=== PATIENT | female | born 1935 | race Caucasian/White ===

== ENCOUNTER 2017-03-17 08:31 | Inpatient (IN) | payer MEDICARE, OTHER ==
[~2017-03-17] VITALS: Ht 162.6 cm; Wt 47.2 kg
[~2017-03-17 08:31] MED LIST: ALEN70TA5 PO; DONE10TA61 PO; ENAL2.5T PO; LEVO112T4 PO; MEMA10TA PO; SIMV20TA3 PO
[2017-03-17] MEDS ORDERED: ACET325T9 PO (09:53)
[2017-03-17] MEDS ORDERED: LISI-338 PO (09:53)
[2017-03-17] MEDS ORDERED: CYAN10002 IJ (09:53)
[2017-03-17] MEDS ORDERED: PNV1TABL25 PO (09:53)
[2017-03-17] MEDS ORDERED: LEVO100T5 PO (09:53)
[2017-03-17 16:02] VITALS: BP 136/77
[2017-03-17 19:11] VITALS: BP 154/75
[2017-03-17] MEDS: DONEPEZIL HCL 10 MG TABLET PO SCH (20:03)
[2017-03-17] MEDS: SIMVASTATIN 20 MG TABLET PO SCH (20:04)
[2017-03-17] MEDS: MEMANTINE 10 MG TABLET. PO SCH (20:04)
[2017-03-17] MEDS: ACETAMINOPHEN 325 MG TABLET PO PRN (20:04)
[2017-03-18 05:39] VITALS: BP 155/75
[2017-03-18] MEDS: LEVOTHYROXINE 100 MCG TABLET PO SCH (06:28)
[2017-03-18] MEDS ORDERED: ALENDRONATE SODIUM 70 MG TABLET PO SCH (07:00)
[2017-03-18 08:00] VITALS: BP 138/81
[2017-03-18] MEDS: MEMANTINE 10 MG TABLET. PO SCH ×2 (09:49→19:40)
[2017-03-18] MEDS: PRENATAL MULTIVITAMIN TABLET. PO SCH (09:49)
[2017-03-18] MEDS: LISINOPRIL 5 MG TABLET. PO SCH (11:00)
[2017-03-18] MEDS: CYANOCOBALAMIN (VITAMIN B-12) 1,000 MCG/ML VIAL IM SCH (12:55)
[2017-03-18] MEDS: SIMVASTATIN 20 MG TABLET PO SCH (19:40)
[2017-03-18] MEDS: DONEPEZIL HCL 10 MG TABLET PO SCH (19:40)
[2017-03-19] MEDS: LEVOTHYROXINE 100 MCG TABLET PO SCH (04:51)
[2017-03-19 08:00] VITALS: BP 143/80
[2017-03-19] MEDS: PRENATAL MULTIVITAMIN TABLET. PO SCH (08:34)
[2017-03-19] MEDS: MEMANTINE 10 MG TABLET. PO SCH ×2 (08:34→19:57)
[2017-03-19] MEDS: CYANOCOBALAMIN (VITAMIN B-12) 1,000 MCG/ML VIAL IM SCH (08:34)
[2017-03-19] MEDS: LISINOPRIL 5 MG TABLET. PO SCH (08:35)
[2017-03-19 18:38] VITALS: BP 151/69
[2017-03-19] MEDS: SIMVASTATIN 20 MG TABLET PO SCH (19:57)
[2017-03-19] MEDS: ACETAMINOPHEN 325 MG TABLET PO PRN (19:57)
[2017-03-19] MEDS: DONEPEZIL HCL 10 MG TABLET PO SCH (19:57)
[2017-03-20] MEDS: LEVOTHYROXINE 100 MCG TABLET PO SCH (04:48)
[2017-03-20 05:02] VITALS: BP 147/79
[2017-03-20] MEDS: LISINOPRIL 5 MG TABLET. PO SCH (08:01)
[2017-03-20] MEDS: CYANOCOBALAMIN (VITAMIN B-12) 1,000 MCG/ML VIAL IM SCH (08:01)
[2017-03-20] MEDS: PRENATAL MULTIVITAMIN TABLET. PO SCH (08:01)
[2017-03-20] MEDS: MEMANTINE 10 MG TABLET. PO SCH ×2 (08:02→20:09)
[2017-03-20 18:29] VITALS: BP 99/62
[2017-03-20 19:42] LABS: BILIRUBIN,URINE NEG (NEG); CLARITY,URINE HAZY; COLOR,URINE YELLOW; GLUCOSE,URINE NEG (NEG)
[2017-03-20 19:43] LABS: BACTERIA,URINE MANY /HPF (0-FEW); NITRITE,URINE NEG (NEG); RBC,URINE 0 /HPF (0-2); SQUAMOUS EPITHELIAL CELL,UR MANY /LPF; UROBILINOGEN,URINE 0.2 mg/dL (0.2 mg/dL)
[2017-03-20] MEDS: DONEPEZIL HCL 10 MG TABLET PO SCH (20:08)
[2017-03-20] MEDS: SIMVASTATIN 20 MG TABLET PO SCH (20:09)
[2017-03-21] MEDS: LEVOTHYROXINE 100 MCG TABLET PO SCH (06:13)
[2017-03-21] MEDS: CYANOCOBALAMIN (VITAMIN B-12) 1,000 MCG/ML VIAL IM SCH (08:44)
[2017-03-21] MEDS: LISINOPRIL 5 MG TABLET. PO SCH ×2 (08:44→08:46)
[2017-03-21] MEDS: MEMANTINE 10 MG TABLET. PO SCH ×2 (08:44→19:51)
[2017-03-21] MEDS: PRENATAL MULTIVITAMIN TABLET. PO SCH (08:46)
[2017-03-21 09:14] VITALS: BP 120/65
[2017-03-21 19:24] VITALS: BP 110/63
[2017-03-21] MEDS: SIMVASTATIN 20 MG TABLET PO SCH (19:51)
[2017-03-21] MEDS: DONEPEZIL HCL 10 MG TABLET PO SCH (19:51)
[2017-03-22 05:42] VITALS: BP 116/71
[2017-03-22] MEDS: LEVOTHYROXINE 100 MCG TABLET PO SCH (05:59)
[2017-03-22] MEDS: PRENATAL MULTIVITAMIN TABLET. PO SCH (08:09)
[2017-03-22] MEDS: MEMANTINE 10 MG TABLET. PO SCH ×2 (08:11→19:41)
[2017-03-22] MEDS: LISINOPRIL 5 MG TABLET. PO SCH (08:11)
[2017-03-22] MEDS: DONEPEZIL HCL 10 MG TABLET PO SCH (19:41)
[2017-03-22] MEDS: SIMVASTATIN 20 MG TABLET PO SCH (19:41)
[2017-03-22 19:43] VITALS: BP 131/76
[2017-03-23 05:48] VITALS: BP 156/53
[2017-03-23] MEDS: LEVOTHYROXINE 100 MCG TABLET PO SCH (06:25)
[2017-03-23] MEDS: LISINOPRIL 5 MG TABLET. PO SCH (08:07)
[2017-03-23] MEDS: PRENATAL MULTIVITAMIN TABLET. PO SCH (08:07)
[2017-03-23] MEDS: MEMANTINE 10 MG TABLET. PO SCH ×2 (08:07→19:46)
[2017-03-23 19:27] VITALS: BP 110/69
[2017-03-23] MEDS: ACETAMINOPHEN 325 MG TABLET PO PRN (19:46)
[2017-03-23] MEDS: SIMVASTATIN 20 MG TABLET PO SCH (19:46)
[2017-03-23] MEDS: DONEPEZIL HCL 10 MG TABLET PO SCH (19:46)
[2017-03-23 20:20] LABS: BILIRUBIN,URINE NEG (NEG); CLARITY,URINE HAZY; COLOR,URINE YELLOW; GLUCOSE,URINE NEG (NEG); NITRITE,URINE POS (NEG); UROBILINOGEN,URINE 0.2 mg/dL (0.2 mg/dL)
[2017-03-23 20:21] LABS: BACTERIA,URINE MOD /HPF (0-FEW); SQUAMOUS EPITHELIAL CELL,UR MOD /LPF
[2017-03-24] MEDS: LEVOTHYROXINE 100 MCG TABLET PO SCH (05:10)
[2017-03-24 05:14] VITALS: BP 137/62
[2017-03-24] MEDS: PRENATAL MULTIVITAMIN TABLET. PO SCH (08:16)
[2017-03-24] MEDS: MEMANTINE 10 MG TABLET. PO SCH ×2 (08:17→19:58)
[2017-03-24] MEDS: LISINOPRIL 5 MG TABLET. PO SCH (08:17)
[2017-03-24 18:55] VITALS: BP 121/63
[2017-03-24] MEDS: DONEPEZIL HCL 10 MG TABLET PO SCH (19:58)
[2017-03-24] MEDS: SIMVASTATIN 20 MG TABLET PO SCH (19:58)
[2017-03-25] MEDS: LEVOTHYROXINE 100 MCG TABLET PO SCH (06:08)
[2017-03-25 06:16] VITALS: BP 156/80
[2017-03-25] MEDS: PRENATAL MULTIVITAMIN TABLET. PO SCH (08:52)
[2017-03-25] MEDS: MEMANTINE 10 MG TABLET. PO SCH ×2 (08:52→19:18)
[2017-03-25] MEDS: LISINOPRIL 5 MG TABLET. PO SCH (08:53)
[2017-03-25 19:09] VITALS: BP 124/75
[2017-03-25] MEDS: SIMVASTATIN 20 MG TABLET PO SCH (19:18)
[2017-03-25] MEDS: DONEPEZIL HCL 10 MG TABLET PO SCH (19:18)
[2017-03-26] MEDS: LEVOTHYROXINE 100 MCG TABLET PO SCH (06:35)
[2017-03-26 06:39] VITALS: BP 136/74
[2017-03-26] MEDS: PRENATAL MULTIVITAMIN TABLET. PO SCH (08:16)
[2017-03-26] MEDS: MEMANTINE 10 MG TABLET. PO SCH ×2 (08:16→19:25)
[2017-03-26] MEDS: LISINOPRIL 5 MG TABLET. PO SCH (08:17)
[2017-03-26 18:08] VITALS: BP 113/54
[2017-03-26] MEDS: AMOXICILLIN 500 MG CAPSULE PO SCH (19:25)
[2017-03-26] MEDS: DONEPEZIL HCL 10 MG TABLET PO SCH (19:25)
[2017-03-26] MEDS: ACETAMINOPHEN 325 MG TABLET PO PRN (19:25)
[2017-03-26] MEDS: SIMVASTATIN 20 MG TABLET PO SCH (19:25)
[2017-03-27] MEDS: LEVOTHYROXINE 100 MCG TABLET PO SCH (05:31)
[2017-03-27 05:32] VITALS: BP 120/67
[2017-03-27 08:11] VITALS: BP 120/67
[2017-03-27] MEDS: AMOXICILLIN 500 MG CAPSULE PO SCH ×2 (08:11→13:03)
[2017-03-27] MEDS: MEMANTINE 10 MG TABLET. PO SCH (08:11)
[2017-03-27] MEDS: LISINOPRIL 5 MG TABLET. PO SCH (08:11)
[2017-03-27] MEDS: PRENATAL MULTIVITAMIN TABLET. PO SCH (08:11)
[2017-03-31] MEDS ORDERED: ALENDRONATE SODIUM 35 MG TABLET PO SCH (07:00)
[2017-04-16] MEDS ORDERED: CYANOCOBALAMIN (VITAMIN B-12) 1,000 MCG/ML VIAL IM SCH (09:00)
--- NOTE | 2017-05-04 18:51 | DS ---
DATE OF DISCHARGE: 03/27/2017 HISTORY OF PRESENT ILLNESS: The patient is a 81-year-old female patient who was originally admitted to [address] [place] [address] on 03/15/2017. She apparently has developmental disability as well as dementia and resides in her own apartment and she got up in the middle of the night, and it was dark and she fell and remained on the floor for almost throughout the night. The patient did not take recall the circumstances of her fall and apparently was brought to the Emergency Room, was found to have rhabdomyolysis and hyperchloremic hypernatremia secondary to volume depletion, hypokalemia. She has also some right hip redness and coccyx wound. She was basically rehydrated. She was seen by the wound care team as well as physical and occupational therapist. Eventually, she was discharged to swing bed for further rehabilitation and did very well. Her mobility has improved and she is back to her baseline, and a decision was made to discharge her home on 03/27/2017. PHYSICAL EXAMINATION: GENERAL: On the day of discharge, the patient looked well and was clearly in no apparent respiratory distress. She was slightly pale, but no jaundice, cyanosis, or thyromegaly. No jugular venous distention. No limb edema. VITAL SIGNS: Her heart rate was 61, blood pressure 120/67, temperature was 97.4, respiratory rate was 20, and oxygen saturation was 95% on room air. HEAD, EYES, EARS, NOSE, AND THROAT: Showed normocephalic, atraumatic. NECK: Supple. HEART: Showed normal first and second heart sounds with no gallop, rub or murmur. CHEST: Clear to auscultation. No crepitation or rhonchi. ABDOMEN: Distended, soft, nontender. No guarding or rigidity. No organomegaly. Hernial orifices intact. Bowel sounds normal. NEUROLOGIC: She was demented without any obvious lateralizing sign. DISCHARGE MEDICATIONS: She was discharged home to continue on following medications: 1. Acetaminophen 650 mg every 4 hours. 2. Alendronate 70 mg once a week. 3. Cyanocobalamin 1000 mcg/mL intramuscular every 4 weeks. 4. Aricept 10 mg at bedtime. 5. Levothyroxine sodium 100 mcg once a day. 6. Lisinopril 5 mg once a day. 7. Namenda 10 mg twice a day. 8. multivitamin 1 tablet once a day. FINAL DISCHARGE DIAGNOSES: 1. Status post fall with mild rhabdomyolysis, resolved. 2. Hypernatremia, resolved. 3. Hyperkalemia, resolved. 4. Alzheimer's disease for which she continues on Aricept and Namenda. 5. Echogenic hyperthyroidism, resolved her Synthroid was cut down. 6. Right hip redness and coccygeal wound. 7. Iron deficiency anemia. 8. Severe vitamin B12 deficiency. FRANCISCO FOWLER MD DR: PATRICE/josefina JOB#: [id number] / [id number]
== END 2017-03-27 15:20 | DRG 558 ==
LOC: LND 10:42
PROVIDERS: ADMIT Family Medicine; ATTEND Family Medicine
DX: M62.82 Rhabdomyolysis (principal); E87.0 Hyperosmolality and hypernatremia; E87.5 Hyperkalemia; E87.8 Other disorders of electrolyte and fluid balance, not elsewhere classified; Z68.1 Body mass index [BMI] 19.9 or less, adult; D50.9 Iron deficiency anemia, unspecified; E53.8 Deficiency of other specified B group vitamins; E87.6 Hypokalemia; F02.80 Dementia in other diseases classified elsewhere, unspecified severity, without behavioral disturbance, psychotic disturbance, mood disturbance, and anxiety; G30.9 Alzheimer's disease, unspecified; E86.9 Volume depletion, unspecified; E05.90 Thyrotoxicosis, unspecified without thyrotoxic crisis or storm; S71.001A Unspecified open wound, right hip, initial encounter; E78.5 Hyperlipidemia, unspecified; I10 Essential (primary) hypertension; R63.6 Underweight; R31.9 Hematuria, unspecified; D72.829 Elevated white blood cell count, unspecified; M81.0 Age-related osteoporosis without current pathological fracture; E03.9 Hypothyroidism, unspecified; W19.XXXA Unspecified fall, initial encounter; Y93.89 Activity, other specified; Y92.89 Other specified places as the place of occurrence of the external cause; Y99.8 Other external cause status; Z90.49 Acquired absence of other specified parts of digestive tract; Z83.3 Family history of diabetes mellitus; Z60.2 Problems related to living alone
CPT/HCPCS: 81001; 87086; 87186; J3420; 97110; 97116; 97530; 97535

== ENCOUNTER 2018-09-04 11:33 | Emergency (ER) | payer MEDICARE, OTHER ==
[~2018-09-04] VITALS: Ht 162.6 cm; Wt 47.2 kg
[~2018-09-04 11:33] MED LIST changes: +ACET325T9 PO; +CYAN10002 IJ; +LEVO100T5 PO; +LISI-338 PO; +PNV1TABL25 PO
[2018-09-04] MEDS ORDERED: diphenhydrAMINE 50 MG/ML VIAL IV ONE (12:15)
[2018-09-04] MEDS ORDERED: FAMOTIDINE 20 MG/2 ML VIAL IVP ONE (12:15)
[2018-09-04] MEDS ORDERED: IV NORMAL SALINE 500ML 500 ML IV ONE (12:15)
[2018-09-04] MEDS ORDERED: methylPREDNISolone SOD SUCC PF 125 MG/2 ML VIAL. IV ONE (12:15)
[2018-09-04 12:27] LABS: BASO % 0 % (0-3); EOS % 1 % (0-3); HEMATOCRIT 42.6 % (36.0-47.0); HEMOGLOBIN 14.1 g/dL (12.0-15.5); LYMPH # 0.6 x10^3/uL (1.0-4.8); LYMPH % 7 % (24-48); MEAN CORPUSCULAR HEMOGLOBIN 30 pg (25-35); MEAN CORPUSCULAR HGB CONC 33 g/dL (31-37); MEAN CORPUSCULAR VOLUME 91 fL (79-100); MONO # 0.3 x10^3/uL (0.0-1.1); MONO % 4 % (0-9); NEUT # 8.2 x10^3uL (1.8-7.7); NEUT % 89 % (31-73); PLATELET COUNT 215 x10^3/uL (140-400); RED BLOOD COUNT 4.69 x10^6/uL (3.50-5.40); RED CELL DISTRIBUTION WIDTH 13.2 % (11.5-14.5); WHITE BLOOD COUNT 9.2 x10^3/uL (4.0-11.0)
[2018-09-04 12:43] LABS: ALBUMIN 3.1 g/dL (3.4-5.0); ALBUMIN/GLOBULIN RATIO 0.8 (1.0-1.7); GFR 53.3; POTASSIUM 4.2 mmol/L (3.5-5.1); TOTAL BILIRUBIN 0.6 mg/dL (0.2-1.0); TOTAL PROTEIN 7.1 g/dL (6.4-8.2)
--- NOTE | 2018-09-04 12:55 | PHYS DOC ---
Past History Past Medical History: Dementia, High Cholesterol, Hypertension, Hypothyroid, Stroke Past Surgical History: Other Smoking: Non-smoker Alcohol Use: None Drug Use: None Adult General Chief Complaint Chief Complaint: SKIN RASH HPI HPI Patient is a 82 year old female patient presents of [facility] with dementia brought in because of a rash or 3 days that did not get better with treatment of oral 2 mg of prednisone 3 times a day for the last 2 days. Patient did not have itching, fever and chills, starting new medication or history of rash. Review of Systems Review of Systems Constitutional: Denies fever or chills [] Eyes: Denies change in visual acuity, redness, or eye pain [] HENT: Denies nasal congestion or sore throat [] Respiratory: Denies cough or shortness of breath [] Cardiovascular: No additional information not addressed in HPI [] GI: Denies abdominal pain, nausea, vomiting, bloody stools or diarrhea [] : Denies dysuria or hematuria [] Musculoskeletal: Denies back pain or joint pain [] Integument: Reports rash, denies itching Neurologic: Denies headache, focal weakness or sensory changes [] Endocrine: Denies polyuria or polydipsia [] All other systems were reviewed and found to be within normal limits, except as documented in this note. Current Medications Current Medications Current Medications Medications (Trade) Dose Ordered Sig/Gamaliel Start Time Stop Time Status Last Admin Dose Admin Diphenhydramine HCl (Benadryl) 25 mg 1X ONCE 09/04/18 12:15 09/04/18 12:16 DC 09/04/18 12:33 25 MG Famotidine (Pepcid Vial) 20 mg 1X ONCE 09/04/18 12:15 09/04/18 12:16 DC 09/04/18 12:33 20 MG Methylprednisolone Sodium Succinate (SOLU-Medrol 125MG VIAL) 125 mg 1X ONCE 09/04/18 12:15 09/04/18 12:16 DC 09/04/18 12:33 125 MG Sodium Chloride 500 ml @ 0 mls/hr 1X ONCE 09/04/18 12:15 09/04/18 12:16 DC 09/04/18 12:33 500 MLS/HR Allergies Allergies Allergies Coded Allergies Type Severity Reaction Last Updated Verified No Known Drug Allergies 03/14/17 No Physical Exam Physical Exam Constitutional: No acute distress, non-toxic appearance. [] HENT: Normocephalic, atraumatic, bilateral external ears normal, oropharynx moist, no oral exudates, nose normal. [] Eyes: PERRLA, EOMI, conjunctiva normal, no discharge. [] Neck: Normal range of motion, no tenderness, supple, no stridor. [] Cardiovascular:Heart rate regular rhythm, no murmur [] Lungs & Thorax: Bilateral breath sounds clear to auscultation [] Abdomen: Bowel sounds normal, soft, no tenderness, no masses, no pulsatile masses. [] Skin: Warm, dry, generalized patchy rash in neck and upper extremities and trunk and less in the lower extremity without sign of infection Back: No tenderness, no CVA tenderness. [] Extremities: No tenderness, no cyanosis, no clubbing, ROM intact, no edema. [] Neurologic: Alert and oriented X 1, normal motor function, normal sensory function, no focal deficits noted. [] Psychologic: Affect normal Current Patient Data Vital Signs Vital Signs Date Time Temp Pulse Resp B/P (MAP) Pulse Ox O2 Delivery O2 Flow Rate FiO2 09/04/18 11:54 98.3 72 18 98 Room Air Lab Results Laboratory Tests Test 09/04/18 12:12 White Blood Count 9.2 x10^3/uL (4.0-11.0) Red Blood Count 4.69 x10^6/uL (3.50-5.40) Hemoglobin 14.1 g/dL (12.0-15.5) Hematocrit 42.6 % (36.0-47.0) Mean Corpuscular Volume 91 fL (79-100) Mean Corpuscular Hemoglobin 30 pg (25-35) Mean Corpuscular Hemoglobin Concent 33 g/dL (31-37) Red Cell Distribution Width 13.2 % (11.5-14.5) Platelet Count 215 x10^3/uL (140-400) Neutrophils (%) (Auto) 89 % (31-73) H Lymphocytes (%) (Auto) 7 % (24-48) L Monocytes (%) (Auto) 4 % (0-9) Eosinophils (%) (Auto) 1 % (0-3) Basophils (%) (Auto) 0 % (0-3) Neutrophils # (Auto) 8.2 x10^3uL (1.8-7.7) H Lymphocytes # (Auto) 0.6 x10^3/uL (1.0-4.8) L Monocytes # (Auto) 0.3 x10^3/uL (0.0-1.1) Eosinophils # (Auto) 0.0 x10^3/uL (0.0-0.7) Basophils # (Auto) 0.0 x10^3/uL (0.0-0.2) Sodium Level 142 mmol/L (136-145) Potassium Level 4.2 mmol/L (3.5-5.1) Chloride Level 103 mmol/L (98-107) Carbon Dioxide Level 34 mmol/L (21-32) H Anion Gap 5 (6-14) L Blood Urea Nitrogen 24 mg/dL (7-20) H Creatinine 1.0 mg/dL (0.6-1.0) Estimated GFR (Cockcroft-Gault) 53.3 BUN/Creatinine Ratio 24 (6-20) H Glucose Level 96 mg/dL (70-99) Calcium Level 9.0 mg/dL (8.5-10.1) Total Bilirubin 0.6 mg/dL (0.2-1.0) Aspartate Amino Transferase (AST) 15 U/L (15-37) Alanine Aminotransferase (ALT) 17 U/L (14-59) Alkaline Phosphatase 83 U/L (46-116) Total Protein 7.1 g/dL (6.4-8.2) Albumin 3.1 g/dL (3.4-5.0) L Albumin/Globulin Ratio 0.8 (1.0-1.7) L EKG EKG [] Radiology/Procedures Radiology/Procedures [] Course & Med Decision Making Course & Med Decision Making Pertinent Labs reviewed. (See chart for details) Evaluation of patient in ER showed 82-year-old female patient resident of [facility] brought in with generalized patchy rash that did not get better with low dose of prednisone. Did not have shortness of breath or itching and treated with IV fluid, prednisone, Pepcid and Benadryl with mild improvement of rash. Plan discharge patient to the [facility] with diagnosis of allergic/and prescription of Medrol Dosepak, Pepcid, Atarax. Dragon Disclaimer Dragon Disclaimer This electronic medical record was generated, in whole or in part, using a voice recognition dictation system. Departure Departure: Impression: Primary Impression: Rash due to allergy Disposition: ER SNF ([facility] at 1319) Condition: IMPROVED Referrals: KERVIN CASTILLO MD (PCP) Patient Instructions: Rash Additional Instructions: Follow-up with your primary care physician in 3-5 days Return to ER if not getting better Scripts Hydroxyzine Hcl (HYDROXYZINE HCL) 25 Mg Tablet 1 TAB PO TID PRN for ITCHING, #30 TAB Prov: DARIEL DASILVA MD 09/04/18 Famotidine (PEPCID) 20 Mg Tablet 1 TAB PO BID for rash, #14 TAB 0 Refills Prov: DARIEL DASILVA MD 09/04/18 Methylprednisolone (MEDROL) 4 Mg Tab.ds.pk 1 PKG PO UD for inflammation, #1 PKG Prov: DARIEL DASILVA MD 09/04/18 DARIEL DASILVA MD Sep 04, 2018 12:55
[2018-09-04 13:05] VITALS: BP 114/74
[2018-09-04] MEDS ORDERED: METH4TAB2 PO (13:23)
[2018-09-04] MEDS ORDERED: FAMO-63 PO (13:23)
[2018-09-04] MEDS ORDERED: HYDR25TA PO (13:23)
== END 2018-09-04 13:30 ==
LOC: ER 11:33
DX: T78.40XA Allergy, unspecified, initial encounter (principal); R21 Rash and other nonspecific skin eruption; F03.90 Unspecified dementia, unspecified severity, without behavioral disturbance, psychotic disturbance, mood disturbance, and anxiety; E78.00 Pure hypercholesterolemia, unspecified; I10 Essential (primary) hypertension; E03.9 Hypothyroidism, unspecified; Z86.73 Personal history of transient ischemic attack (TIA), and cerebral infarction without residual deficits; X58.XXXA Exposure to other specified factors, initial encounter
CPT/HCPCS: 36415; 80053; 85025; 96374; 96375; 99283; J1200; J2930; J3490; J7040

== ENCOUNTER 2020-07-03 22:57 | Emergency (ER) | payer MEDICARE, OTHER ==
[~2020-07-03] VITALS: Ht 162.6 cm; Wt 53.0 kg
[~2020-07-03 22:57] MED LIST changes: -ALEN70TA5 PO; +ALEN70TA6 PO; -ENAL2.5T PO; +ENAL2.5T9 PO; +FAMO-63 PO; +HYDR25TA PO; +METH4TAB2 PO; +SIMV20TA18 PO; -SIMV20TA3 PO
--- NOTE | 2020-07-03 23:00 | PHYS DOC ---
Past History Past Medical History: Dementia, High Cholesterol, Hypertension, Hypothyroid, Stroke Past Surgical History: Other Smoking: Non-smoker Alcohol Use: None Drug Use: None General Adult HPI: HPI: "..Its a miserable world... You do not know.... It is a miserable world..... I fell,,,, I would like to see my cousin.. " Patient is a 84 year old female who presents with hx of fall out of bed onto her face.. Reportedly the mattress and slipped on her bed and she fell face forward. Has a 1 cm laceration to the left eyebrow area. No reported history of loss of consciousness. No history of fever or chills. Patient does have longstanding history of dementia and de -conditioning. Patient is a [facility] since 03/27/2017. Follows with . 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 Review of Systems: Review of Systems: Review of systems somewhat limited because of patient's mental status- Alzheimer's Constitutional: Denies fever or chills Eyes: Denies change in visual acuity HENT: Denies nasal congestion or sore throat . Complains of left eyebrow laceration and pain Respiratory: Denies cough or shortness of breath Cardiovascular: Denies chest pain or edema GI: Denies abdominal pain, nausea, vomiting, bloody stools or diarrhea : Denies dysuria Musculoskeletal: Denies back pain or joint pain Integument: Denies rash Neurologic: Denies headache, focal weakness or sensory changes Endocrine: Denies polyuria or polydipsia Lymphatic: Denies swollen glands Psychiatric: Denies depression or anxiety Heart Score: Risk Factors: Risk Factors: DM, Current or recent (<one month) smoker, HTN, HLP, family history of CAD, obesity. Risk Scores: Score 0 - 3: 2.5% MACE over next 6 weeks - Discharge Home Score 4 - 6: 20.3% MACE over next 6 weeks - Admit for Clinical Observation Score 7 - 10: 72.7% MACE over next 6 weeks - Early Invasive Strategies Family History: Family History: Noncontributory to presentation Current Medications: Current Meds: See nursing for home meds Allergies: Allergies: Allergies Coded Allergies Type Severity Reaction Last Updated Verified No Known Drug Allergies 03/14/17 No Physical Exam: PE: Constitutional: , no acute distress, chronically ill and appearance. [] HENT: Normocephalic, 1 cm laceration left eyebrow with small hematoma, bilateral external ears normal, oropharynx moist, no oral exudates, nose normal. [] Eyes: PERRLA, EOMI, conjunctiva normal, no discharge. [] Neck: Normal range of motion, no tenderness, supple, no stridor. [] Cardiovascular:Heart rate regular rhythm, no murmur, PMI to the left Lungs & Thorax: Bilateral breath sounds equal apex auscultation [] Abdomen: Bowel sounds normal, soft, no tenderness, no masses, no pulsatile joseph s. Old scar. Wet diaper. Skin: Warm, dry, no erythema, no rash. Poor turgor. Back: No tenderness, no CVA tenderness. Kyphosis Extremities: No tenderness, no cyanosis, no clubbing, generalized weakness, no edema. Arthritic changes Neurologic: Alert to name and place, cross reacts and cross protects, no new focal deficits noted per long-term Psychologic: Affect anxious,, judgement obviously impaired memory and judgment, mood depressed. EKG: EKG: [] Radiology/Procedures: Radiology/Procedures: [place] [address] IMAGING REPORT Signed PATIENT: ANMOL BRASWELL ACCOUNT: [id number] : 1935 LOCATION: ER AGE: 84 SEX: F EXAM STATUS: PRE ER ORD. PHYSICIAN: JOSETTE HAMILTON MD REASON: FALL ON FACE PROCEDURE: CT HEAD AND CERVICAL SPINE WO EXAM: CT head and cervical spine without contrast, CT maxillofacial bones without contrast INDICATION: Fall on face COMPARISON: CT head and C-spine 03/14/2017 TECHNIQUE: Axial CT imaging through the head, cervical spine, and facial bones without intravenous contrast. Sagittal and coronal reformats were obtained of the facial bones and cervical spine. One or more of the following individualized dose reduction techniques were utilized for this examination: 1. Automated exposure control 2. Adjustment of the mA and/or kV according to patient size 3. Use of iterative reconstruction technique. FINDINGS: CT HEAD: No intracranial hemorrhage, acute infarct, or mass lesion. The ventricles and sulci are moderately enlarged, unchanged. There is moderate to severe periventricular and confluent deep white matter hypoattenuation. No acute fracture. Visualized portions of the nasal sinuses and mastoid air cells are clear. Globes and orbits are intact. CT FACIAL BONES: No acute fracture. Temporomandibular joints are normally aligned. Paranasal sinuses and mastoid air cells are clear. Globes and orbits are intact. Mild left periorbital soft tissue swelling. CT CERVICAL SPINE: Exam is limited by motion artifact. No acute fracture. There is increased 2 mm anterolisthesis of C2 on C3, 2 mm retrolisthesis of C4 on C5, and 3 mm anterolisthesis of C7 on T1, likely degenerative. There is moderate to severe degenerative disc disease, greatest at C4-C5, C5-C6, and C6-C7. Multilevel facet arthrosis, severe on the left at C3-C4. Uncovertebral joint proliferation and disc osteophyte complexes are seen throughout the cervical spine with varying degrees of neural foraminal narrowing. Probable mild canal narrowing at the level Prevertebral soft tissues is normal there are calcifications in the right carotid bifurcation. Lung apices are IMPRESSION: 1. No acute intracranial abnormality. Moderate volume loss and white matter disease. 2. No acute fracture of the facial bones. 3. No acute osseous abnormality of the cervical spine. Moderate to severe degenerative disc disease. Electronically signed by: Destiny Harrison MD (07/03/2020 11:42 PM) [id number] DICTATED AND SIGNED BY: DESTINY HARRISON MD DATE: 07/03/[address] [place] [id number] IMAGING REPORT Signed PATIENT: ANMOL BRASWELL ACCOUNT: [id number] : 1935 LOCATION: ER AGE: 84 SEX: F EXAM STATUS: PRE ER ORD. PHYSICIAN: JOSETTE HAMILTON MD REASON: FALL PROCEDURE: CHEST AP ONLY EXAM: CHEST AP ONLY 07/03/2020 10:32 PM CLINICAL INDICATION:Fall COMPARISON:Chest radiograph 03/14/2017 TECHNIQUE:AP view of the chest FINDINGS:A right PICC terminates over the lower superior vena cava. The heart is normal in size. Lungs are hypoexpanded with mild bibasilar atelectasis. Possible small pleural effusions. No pneumothorax. No acute osseous abnormality. IMPRESSION:Hypoexpanded lungs with mild bibasilar atelectasis. Possible small pleural effusions. Electronically signed by: Destiny Harrison MD (07/03/2020 11:45 PM) [id number] DICTATED AND SIGNED BY: DESTINY HARRISON MD DATE: 07/03/20 2345 CC: KERVIN CASTILLO MD; JOSETTE HAMILTON MD ~ Course & Med Decision Making: Course & Med Decision Making Pertinent Labs and Imaging studies reviewed. (See chart for details) [id number] laceration Procedure: Location: Anesthesia: Laceration repair-injected laceration with lidocaine 2%. Irrigated with normal saline. Closed with Steri-Strips. Keep laceration clean and dry. If Steri strips come off, may start antibiotic ointment 4 x day. Tylenol and Ibuprofen for discomfort. Head Injury precautions. [] Impression: 1. Head Injury 2. Fall 3. 1 Cm laceration Lt eye brow Dragon Disclaimer: Dragjacob Disclaimer: This electronic medical record was generated, in whole or in part, using a voice recognition dictation system. Departure Departure: Disposition: 01 HOME/RESIDENCE PRIOR TO ADM Condition: STABLE Referrals: KERVIN CASTILLO MD (PCP) [place] Disclaimer This chart was dictated in whole or in part using Voice Recognition software in a busy, high-work load, and often noisy Emergency Department environment. It may contain unintended and wholly unrecognized errors or omissions. JOSETTE HAMILTON MD Jul 03, 2020 23:00
[2020-07-03] MEDS: LIDOCAINE 2%/EPI 1:100,000 20 ML VIAL. IJ ONE (23:15)
[2020-07-03] MEDS ORDERED: TETANUS AND DIPHTHERIA TOX/PF 0.5 ML VIAL. VAX IM ONE (23:30)
--- NOTE | 2020-07-03 23:45 | RAD ---
EXAM: CT head and cervical spine without contrast, CT maxillofacial bones without contrast INDICATION: Fall on face COMPARISON: CT head and C-spine 03/14/2017 TECHNIQUE: Axial CT imaging through the head, cervical spine, and facial bones without intravenous contrast. Sagittal and coronal reformats were obtained of the facial bones and cervical spine. One or more of the following individualized dose reduction techniques were utilized for this examination: 1. Automated exposure control 2. Adjustment of the mA and/or kV according to patient size 3. Use of iterative reconstruction technique. FINDINGS: CT HEAD: No intracranial hemorrhage, acute infarct, or mass lesion. The ventricles and sulci are moderately enlarged, unchanged. There is moderate to severe periventricular and confluent deep white matter hypoattenuation. No acute fracture. Visualized portions of the nasal sinuses and mastoid air cells are clear. Globes and orbits are intact. CT FACIAL BONES: No acute fracture. Temporomandibular joints are normally aligned. Paranasal sinuses and mastoid air cells are clear. Globes and orbits are intact. Mild left periorbital soft tissue swelling. CT CERVICAL SPINE: Exam is limited by motion artifact. No acute fracture. There is increased 2 mm anterolisthesis of C2 on C3, 2 mm retrolisthesis of C4 on C5, and 3 mm anterolisthesis of C7 on T1, likely degenerative. There is moderate to severe degenerative disc disease, greatest at C4-C5, C5-C6, and C6-C7. Multilevel facet arthrosis, severe on the left at C3-C4. Uncovertebral joint proliferation and disc osteophyte complexes are seen throughout the cervical spine with varying degrees of neural foraminal narrowing. Probable mild canal narrowing at the level Prevertebral soft tissues is normal there are calcifications in the right carotid bifurcation. Lung apices are IMPRESSION: 1. No acute intracranial abnormality. Moderate volume loss and white matter disease. 2. No acute fracture of the facial bones. 3. No acute osseous abnormality of the cervical spine. Moderate to severe degenerative disc disease. Electronically signed by: Destiny Harrison MD (07/03/2020 11:42 PM) [id number]
--- NOTE | 2020-07-03 23:48 | RAD ---
EXAM: CHEST AP ONLY 07/03/2020 10:32 PM CLINICAL INDICATION:Fall COMPARISON:Chest radiograph 03/14/2017 TECHNIQUE:AP view of the chest FINDINGS:A right PICC terminates over the lower superior vena cava. The heart is normal in size. Lungs are hypoexpanded with mild bibasilar atelectasis. Possible small pleural effusions. No pneumothorax. No acute osseous abnormality. IMPRESSION:Hypoexpanded lungs with mild bibasilar atelectasis. Possible small pleural effusions. Electronically signed by: Destiny Harrison MD (07/03/2020 11:45 PM) [id number]
[2020-07-04] MEDS ORDERED: BACITRACIN ZINC TOPICAL OINT PACKET. TP ONE (00:15)
[2020-07-04] MEDS: LIDOCAINE 2%/EPI 1:100,000 20 ML VIAL. IJ ONE (00:19)
[2020-07-04 00:44] VITALS: BP 122/51
[2020-07-04] MEDS ORDERED: MUPIROCIN 2% TOPICAL OINTMENT 22GM TUBE. TP SCH (09:00)
== END 2020-07-04 01:13 | disposition home or self-care (01) ==
LOC: ER 22:57
DX: S01.112A Laceration without foreign body of left eyelid and periocular area, initial encounter (principal); F03.90 Unspecified dementia, unspecified severity, without behavioral disturbance, psychotic disturbance, mood disturbance, and anxiety; E78.00 Pure hypercholesterolemia, unspecified; I10 Essential (primary) hypertension; E03.9 Hypothyroidism, unspecified; G30.9 Alzheimer's disease, unspecified; F02.80 Dementia in other diseases classified elsewhere, unspecified severity, without behavioral disturbance, psychotic disturbance, mood disturbance, and anxiety; Z86.73 Personal history of transient ischemic attack (TIA), and cerebral infarction without residual deficits; W06.XXXA Fall from bed, initial encounter; Y93.89 Activity, other specified; Y92.89 Other specified places as the place of occurrence of the external cause; Y99.8 Other external cause status
CPT/HCPCS: 70450; 70486; 71045; 72125; 90471; 90714; 99285-25

== ENCOUNTER 2020-10-06 09:25 | Inpatient (IN) | payer MEDICARE, OTHER ==
[~2020-10-06] VITALS: Ht 162.6 cm; Wt 44.9 kg
[~2020-10-06 09:25] MED LIST changes: -ALEN70TA6 PO; +ALEN70TA71 PO
[2020-10-06] MEDS ORDERED: IV NORMAL SALINE 1,000ML 1,000 ML IV ONE (09:45)
[2020-10-06 10:28] LABS: CLARITY,URINE CLOUDY; COLOR,URINE YELLOW; GLUCOSE,URINE NEG (NEG)
--- NOTE | 2020-10-06 10:32 | PHYS DOC ---
Past History Past Medical History: Dementia, High Cholesterol, Hypertension, Hypothyroid, Stroke Past Surgical History: Other Smoking: Non-smoker Alcohol Use: None Drug Use: None General Adult EDM: Chief Complaint: WEAKNESS/GENERALIZED HPI: HPI: Patient is a 82-year-old female coming in from nursing facility for altered mental status refusing to eat. He said they tried to feed the patient but she spit them out. Has not been drinking the past 2 days. Patient was diagnosed with COVID-19 3 days ago. Per EMS report patient is normally alert and talkative. She was satting 80% on room air on arrival and improved with nasal cannula. On, on ED arrival she was 70% on room air and placed on nonrebreather. They're unsure of any other symptoms although she has been febrile. But she does not have a history of any lung disease or chronic oxygen use regularly. History otherwise limited by patient's lethargic state. Response to pain and follows commands. Review of Systems: Review of Systems: All other systems within normal limits except for as noted in the HPI, and limited by patient's mental status Current Medications: Current Meds: Current Medications Medications (Trade) Dose Ordered Sig/Gamaliel Start Time Stop Time Status Last Admin Dose Admin Sodium Chloride 1,000 ml @ 1,000 mls/hr 1X ONCE 10/06/20 09:45 10/06/20 10:44 Allergies: Allergies: Allergies Coded Allergies Type Severity Reaction Last Updated Verified No Known Drug Allergies 03/14/17 No Physical Exam: PE: Constitutional: Well developed, well nourished, no acute distress, non-toxic appearance. [] HENT: Normocephalic, atraumatic, bilateral external ears normal, nose normal. [] Dry oral mucosa Eyes: PERRLA, conjunctiva normal, no discharge. [] Neck: No rigidity, supple, no stridor. [] Cardiovascular: Regular rate and rhythm, brisk cap refill [] Lungs & Thorax: Nonlabored and symmetric respirations, mild tachypnea, coarse breath sounds Abdomen: Soft, nondistended. Skin: Warm, dry, no erythema, no rash. [] Back: No tenderness, no CVA tenderness. [] Extremities: No deformities, range of motion grossly intact, no lower extremity edema [] Neurologic: Alert and oriented X 3, no focal deficits noted. [] Psychologic: Affect normal, judgement normal, mood normal. [] EKG: EKG: [] Radiology/Procedures: Radiology/Procedures: EXAM: CT angiography of the chest with intravenous contrast. HISTORY: Chest pain and shortness of breath. TECHNIQUE: Computed tomographic images of the chest were obtained following the administration of intravenous contrast according to angiography protocol. Multiplanar reformatting was performed and three dimensional maximum intensity projection images were obtained. *One or more of the following individualized dose reduction techniques were utilized for this examination: 1. Automated exposure control. 2. Adjustment of the mA and/or kV according to patient size. 3. Use of iterative reconstruction technique. COMPARISON: None. FINDINGS: There is no convincing pulmonary embolism. There is no evidence of right heart strain. The heart is normal in size. There is no aortic dissection. No pathologically enlarged mediastinal or hilar lymph node is seen. There is no pleural effusion or pneumothorax. There is lingular and right lower lobe infiltrate with partial consolidation. There is also suspected left basilar and posterior right upper lobe and anterior left upper lobe interstitial infiltrate. There is superimposed lingular bronchiectasis. There are degenerative changes throughout the spine. There is a mild chest wall pectus deformity. There is a mild chronic L1 compression deformity. There is cholelithiasis. There is biliary ductal dilatation, partially included on the [id number]. There is hyperdensity within the downstream common bile duct on the final image, possibly due to choledocholithiasis. There is a small simple cyst within the anterior right kidney. There is colonic diverticulosis. IMPRESSION: 1. No convincing pulmonary embolism. 2. Lingular and right lower lobe infiltrate with suspected partial consolidation and patchy interstitial infiltrate within the posterior right upper lobe and left lung base. There is suspected underlying lingular bronchiectasis. 3. Cholelithiasis and biliary ductal dilatation. There is a round hyperdense structure within the downstream common bile duct which may be due to choledoch olithiasis. This can be assessed with gallbladder sonography if there is clinical concern. [] Heart Score: Risk Factors: Risk Factors: DM, Current or recent (<one month) smoker, HTN, HLP, family history of CAD, obesity. Risk Scores: Score 0 - 3: 2.5% MACE over next 6 weeks - Discharge Home Score 4 - 6: 20.3% MACE over next 6 weeks - Admit for Clinical Observation Score 7 - 10: 72.7% MACE over next 6 weeks - Early Invasive Strategies Course & Med Decision Making: Course & Med Decision Making Pertinent Labs and Imaging studies reviewed. (See chart for details) Admit to hospitalist for hypoxia, RADHA secondary to dehydration, right lower lobe and basilar pneumonia. [] Dragon Disclaimer: Dragon Disclaimer: This electronic medical record was generated, in whole or in part, using a voice recognition dictation system. Departure Departure: Impression: Primary Impression: COVID-19 Additional Impressions: Failure to thrive Pneumonia RADAH (acute kidney injury) Referrals: ARNOLD CARMEN DO (PCP) PURA SAGASTUME MD Oct 06, 2020 10:32
[2020-10-06 10:34] LABS: BACTERIA,URINE FEW /HPF (0-FEW); BILIRUBIN,URINE NEG (NEG); NITRITE,URINE NEG (NEG); RBC,URINE 20-40 /HPF (0-2)
[2020-10-06 10:35] LABS: AMORPHOUS SEDIMENT,UR PRESENT /HPF; GRANULAR CASTS,URINE MANY /HPF; HYALINE CASTS, URINE OCC /HPF; SQUAMOUS EPITHELIAL CELL,UR FEW /LPF
[2020-10-06 10:44] LABS: BASO % 0 % (0-3); EOS % 0 % (0-3); HEMATOCRIT 43.1 % (36.0-47.0); HEMOGLOBIN 13.7 g/dL (12.0-15.5); LYMPH # 0.4 x10^3/uL (1.0-4.8); LYMPH % 3 % (24-48); MEAN CORPUSCULAR HEMOGLOBIN 29 pg (25-35); MEAN CORPUSCULAR HGB CONC 32 g/dL (31-37); MEAN CORPUSCULAR VOLUME 92 fL (79-100); MONO # 0.2 x10^3/uL (0.0-1.1); MONO % 2 % (0-9); NEUT # 12.3 x10^3uL (1.8-7.7); NEUT % 95 % (31-73); PLATELET COUNT 222 x10^3/uL (140-400); RED BLOOD COUNT 4.71 x10^6/uL (3.50-5.40); RED CELL DISTRIBUTION WIDTH 17.4 % (11.5-14.5)
[2020-10-06 11:08] LABS: ALBUMIN 1.9 g/dL (3.4-5.0); ALBUMIN/GLOBULIN RATIO 0.3 (1.0-1.7); CALCIUM 10.4 mg/dL (8.5-10.1); CREATININE 1.6 mg/dL (0.6-1.0); GFR 30.8; TOTAL BILIRUBIN 0.8 mg/dL (0.2-1.0); TOTAL PROTEIN 7.8 g/dL (6.4-8.2)
[2020-10-06] MEDS ORDERED: IV RINGERS SOLUTION,LACTATED 1,000 ML IV ONE (11:30)
[2020-10-06 12:26] LABS: % BANDS 20 % (0-9); % LYMPHS 1 % (24-48); % METAS 1 % (0-0); % MONOS 1 % (0-10); % SEGS 77 % (35-66)
[2020-10-06 12:27] LABS: TOXIC GRANULATION MOD; TOXIC VACUOLATION SLIGHT
[2020-10-06 12:31] LABS: PLT ESTIMATE ADEQUATE (ADEQUATE)
[2020-10-06] MEDS ORDERED: IOHEXOL 350 MG/ML 100 ML VIAL. IV ONE (13:00)
--- NOTE | 2020-10-06 14:02 | EKG ---
[address] [address] Test Date: 2020-10-06 Test Time: 10:32:06 Pat Name: ANMOL BRASWELL Department: Room: Gender: F [employer] Installer: : 1935 Requested By: PURA SAGASTUME Order Number: [id number] Reading MD: Raffaele Jimenez Measurements Intervals [place] Rate: 96 P: 70 WV: 134 QRS: -80 QRSD: 74 T: 71 QT: 376 QTc: 476 Interpretive Statements SINUS RHYTHM ABNORMAL LEFT AXIS DEVIATION LEFT ANTERIOR FASCICULAR BLOCK PROLONGED QT ABNORMAL ECG Electronically Signed On 10-06-2020 15:04:17 GREETER by Raffaele Jimenez
--- NOTE | 2020-10-06 14:12 | RAD ---
EXAM: CT angiography of the chest with intravenous contrast. HISTORY: Chest pain and shortness of breath. TECHNIQUE: Computed tomographic images of the chest were obtained following the administration of int ravenous contrast according to angiography protocol. Multiplanar reformatting was performed and three dimensional maximum intensity projection images were obtained. *One or more of the following individualized dose reduction techniques were utilized for this examina tion: 1. Automated exposure control. 2. Adjustment of the mA and/or kV according to patient size. 3. Use of iterative reconstruction technique. COMPARISON: None. FINDINGS: There is no convincing pulmonary embolism. There is no evidence of right heart strain. The heart is normal in size. There is no aortic dissection. No pathologically enlarged mediastinal or hil ar lymph node is seen. There is no pleural effusion or pneumothorax. There is lingular and right lower lobe infiltrate with partial consolidation. There is also suspected left basilar and posterior right upper lobe and anterior left upper lobe interstitial infiltrate. Th ere is superimposed lingular bronchiectasis. There are degenerative changes throughout the spine. The re is a mild chest wall pectus deformity. There is a mild chronic L1 compression deformity. There is cholelithiasis. There is biliary ductal dilatation, partially included on the [id number]. There is hyperdensity within the downstream common bile duct on the final image, possibly due to cho ledocholithiasis. There is a small simple cyst within the anterior right kidney. There is colonic div erticulosis. IMPRESSION: 1. No convincing pulmonary embolism. 2. Lingular and right lower lobe infiltrate with suspected partial consolidation and patchy interstit ial infiltrate within the posterior right upper lobe and left lung base. There is suspected underlyin g lingular bronchiectasis. 3. Cholelithiasis and biliary ductal dilatation. There is a round hyperdense structure within the nya nstream common bile duct which may be due to choledocholithiasis. This can be assessed with gallbladd er sonography if there is clinical concern. Electronically signed by: Lisseth Abdalla MD (10/06/2020 2:10 PM) [id number]
[2020-10-06] MEDS ORDERED: DEXAMETHASONE SOD PHOS 10 MG/ML VIAL. IV ONE (14:15)
[2020-10-06] MEDS ORDERED: IV NORMAL SALINE 1,000ML 1,000 ML IV SCH (15:30)
[2020-10-06] MEDS ORDERED: ONDANSETRON PF 4 MG/2 ML VIAL. IVP PRN (15:30)
[2020-10-06 17:45] VITALS: BP 102/60
[2020-10-06] MEDS ORDERED: BUPR150T15 PO (18:06)
[2020-10-06] MEDS ORDERED: BACL10TA PO (18:06)
[2020-10-06] MEDS ORDERED: FOLI0.4T2 PO (18:06)
[2020-10-06] MEDS ORDERED: LEVO112T4 PO (18:06)
[2020-10-06] MEDS ORDERED: MIRT-37 PO (18:06)
[2020-10-06] MEDS ORDERED: DOCU-109 PO (18:06)
[2020-10-06] MEDS ORDERED: ASCO500C PO (18:06)
[2020-10-06] MEDS ORDERED: ELECTROLYTE (ICU) PROTOCOL. MC PRN (18:30)
[2020-10-06] MEDS ORDERED: PANTOPRAZOLE IV 40 MG VIAL. IVP ONE (18:30)
--- NOTE | 2020-10-06 18:40 | NUR ---
ADMISSION NOTE-PT ARRIVES VIA EMS FROM ED. DR FOWLER PUTS IN ORDERS, WOUND CARE (ON SITE) CONSULTED ET SEEING PATIENT ET PHOTOGRAPHING WOUNDS.
--- NOTE | 2020-10-06 18:45 | NUR ---
Wound Care Wound Type/Assessment: patient seen per wound care consult. see wound assessment. patient has unstageable pressure ulcers to the left lateral hip, left lateral ankle and left heel. The wounds were all cleaned, measured, pictured and redressed with recommendations of Moistened Hydrofera blue with a contact layer and foam dressing. Treatment Recommendations/Plan: Patient has unstageable pressure ulcers to the left lateral hip, left lateral ankle and left heel- recommendations at this time of moistened Hydrofera blue with a contact layer with foam, change every 2-3 days. recommendations of patient needs to be turning every 2 hours to the back and right side. Patient has off-loading boots- these were reapplied at this time. Offloading surface/device: patient turned to back side a this time. Recommendations of a low-airloss mattress- notified the warehouse pricing and inventory clerk. ordered a wedge at this time Recommended Referrals/Tests: Recommendations of wounds needing debridement Notified RN about the POC and wound care will continue to f/u for changes.
--- NOTE | 2020-10-06 18:52 | HP ---
ADMIT DATE: 10/06/2020 HISTORY OF PRESENT ILLNESS: The patient is an 85-year-old female patient, a resident at [facility], who was brought to the Emergency Room with altered mental status. The patient has been refusing to eat. The nursing staff stated that they tried to feed the patient, but she spit them out. She has not been drinking for the past 2 days. She was diagnosed with COVID-19 three days ago. Per EMS report, the patient is normally alert and talkative. She was satting at 80% on room air on arrival and improved with nasal cannula. When she arrived to the Emergency Room, she was only 70% on room air and placed on nonrebreather mask. She has been apparently febrile, but she does not have any history of any lung disease or chronic oxygen use regularly. The patient is very lethargic and unable to give any useful information. 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 She also has multiple wounds on her left lower leg and left trochanteric area. ALLERGIES: She is allergic to STRAWBERRIES AND TOMATO. MEDICATIONS: She is currently on following medications: She is on Aricept 10 mg once a day, baclofen 5 mg 3 times a day, lisinopril 5 mg once a day, acetaminophen 650 mg every 6 hours, Wellbutrin-XL 150 mg with breakfast, mirtazapine 15 mg at bedtime, Namenda 10 mg twice a day, Colace 100 mg daily, famotidine 20 mg twice a day, methylprednisone 4 mg daily. She is on levothyroxine sodium 112 mcg once a day, cyanocobalamin 1000 mcg/mL intramuscular once a month. She is on folic acid 0.4 mg daily. She is on ascorbic acid 500 mg once a day. She is on multivitamin with minerals 1 tablet once a day, alendronate 70 mg once a week. FAMILY HISTORY: Unobtainable. SOCIAL HISTORY: She is a resident at [facility]. No further information available as the patient is very lethargic. REVIEW OF SYSTEMS: As per history of present illness. PHYSICAL EXAMINATION: GENERAL: On arrival to the Emergency Room, the patient was extremely cachectic, but no pallor, jaundice, cyanosis or thyromegaly. No jugular venous distention. No limb edema. VITAL SIGNS: Her heart rate on arrival was 92, blood pressure was 104/67, temperature was 98.8, respiratory rate was 21 and oxygen saturation was 99% on 100% nonrebreather mask. HEAD, EYES, EARS, NOSE AND THROAT: Showed normocephalic, atraumatic. NECK: Supple. HEART: Showed normal first and second heart sounds with no gallop, rub or murmur. CHEST: Clear to auscultation. No crepitation. She does have some crepitation mostly in the right side posteriorly. I could not appreciate any rhonchi. ABDOMEN: Distended, soft, nontender. NEUROLOGIC: She is very lethargic, but arousable. She has left-sided hemiplegia with fixed flexion contraction of the left upper and left lower extremity. EXTREMITIES: She has multiple wounds in the left trochanteric area and outer aspect of left ankle joint. LABORATORY DATA: Her lab work on arrival showed a white cell count of 13,000, hemoglobin 13.7, hematocrit 43, MCV 92, and platelet count 222,000 with a manual differential showing 95% polymorphs, 3% lymphocytes and 2% monocytes. Her chemistry showed a serum sodium of 162, potassium 3, chloride 121, bicarbonate 32, anion gap of 9, BUN 57, creatinine 1.6, estimated GFR was 30 mL per minute, his glucose 125, calcium was 10.4, magnesium was 3. Total bilirubin 0.8. AST and alkaline phosphatase slightly elevated. Her troponin was 0.135. Beta natriuretic peptide was 2465. Total protein 7.8, albumin was 1.9. Her D-dimer was 4.19. Urinalysis showed the urine was yellow, cloudy with a pH of 5.5, specific gravity of 1.025. There was large amount of protein, negative for glucose, trace amount of ketones, small amount of blood, negative for nitrite, negative for leukocyte esterase, over 20-40 rbc's, 5-10 wbc's, and very few bacteria. DIAGNOSTIC DATA: Her CT angio of the chest showed the patient has no convincing pulmonary embolism. She has lingular and right lower lobe infiltrate with some suspected partial consolidation and patchy interstitial infiltrate within the posterior right upper lobe and left lung base. There is suspected underlying lingular bronchiectasis. She has cholelithiasis and biliary ductal dilatation. There is a round hyperdense structure within the downstream common bile duct, which may be due to choledocholithiasis. ASSESSMENT AND PLAN: In summary, this is an 85-year-old female patient who was admitted with altered mental status. She was found apparently has not been drinking for the last 2 days. She has not been eating. She is clearly very dehydrated. She has severe hypernatremia with a serum sodium of 162, hypokalemia. She has acute kidney injury. Creatinine was 1.6. Mild lactic acidosis. She does have also leukocytosis and bilateral lung infiltrate. She will be treated with IV fluid in the form of D5W. Would continue with the dexamethasone. I will start her also on Zosyn and follow her labs closely. FRANCISCO FOWLER MD DR: PATRICE/josefina JOB#: [id number] / [id number]
[2020-10-06] MEDS: IPRATRPIUM/ALBUTEROL 0.5/2.5MG 3 ML NEBU. NEB SCH ×2 (19:19→19:47)
[2020-10-06 19:40] VITALS: BP 83/56
[2020-10-06] MEDS: POTASSIUM CL 20MEQ IN D5W 1,000 ML IV SCH (20:00)
[2020-10-06] MEDS: PIPERACILLIN/TAZOBACTAM 2.25 GM in IV NORMAL SALINE 50ML 50 ML IV SCH (20:00)
--- NOTE | 2020-10-06 22:51 | NUR ---
PT is nonverbal. PT assessed. PMH compared with chart sent from facility.
[2020-10-07 01:25] VITALS: BP 105/70
[2020-10-07] MEDS: IPRATRPIUM/ALBUTEROL 0.5/2.5MG 3 ML NEBU. NEB SCH ×2 (03:34→12:00)
[2020-10-07] MEDS: PIPERACILLIN/TAZOBACTAM 2.25 GM in IV NORMAL SALINE 50ML 50 ML IV SCH ×3 (04:00→20:00)
[2020-10-07] MEDS: POTASSIUM CL 20MEQ IN D5W 1,000 ML IV SCH ×3 (04:00→18:28)
[2020-10-07 04:49] LABS: BASO % 0 % (0-3); EOS % 0 % (0-3); HEMATOCRIT 32.4 % (36.0-47.0); HEMOGLOBIN 10.4 g/dL (12.0-15.5); LYMPH # 0.3 x10^3/uL (1.0-4.8); LYMPH % 3 % (24-48); MEAN CORPUSCULAR HEMOGLOBIN 29 pg (25-35); MEAN CORPUSCULAR HGB CONC 32 g/dL (31-37); MEAN CORPUSCULAR VOLUME 91 fL (79-100); MONO # 0.2 x10^3/uL (0.0-1.1); MONO % 2 % (0-9); NEUT # 7.3 x10^3uL (1.8-7.7); NEUT % 94 % (31-73); PLATELET COUNT 146 x10^3/uL (140-400); RED BLOOD COUNT 3.55 x10^6/uL (3.50-5.40); RED CELL DISTRIBUTION WIDTH 17.2 % (11.5-14.5); WHITE BLOOD COUNT 7.8 x10^3/uL (4.0-11.0)
[2020-10-07 05:04] LABS: ALBUMIN 1.4 g/dL (3.4-5.0); ALBUMIN/GLOBULIN RATIO 0.3 (1.0-1.7); CALCIUM 8.2 mg/dL (8.5-10.1); CREATININE 1.6 mg/dL (0.6-1.0); GFR 30.8; POTASSIUM 3.2 mmol/L (3.5-5.1); TOTAL BILIRUBIN 0.6 mg/dL (0.2-1.0); TOTAL PROTEIN 6.1 g/dL (6.4-8.2)
[2020-10-07 05:08] VITALS: BP 100/60
[2020-10-07] MEDS: PANTOPRAZOLE IV 40 MG VIAL. IVP SCH (08:38)
[2020-10-07] MEDS: DEXAMETHASONE SOD PHOS 10 MG/ML VIAL. IV SCH (08:38)
--- NOTE | 2020-10-07 09:36 | PN ---
DATE: 10/07/2020 ATTENDING PHYSICIAN: Dr. Contreras. SUBJECTIVE: The patient is nonverbal, very weak, completely bedridden and demented. OBJECTIVE FINDINGS: VITAL SIGNS: Blood pressure is 100/60, pulse 75 and regular, temperature 98.7 degrees Fahrenheit, oxygen 93% on room air. HEENT: Head is without trauma. Pupils are reactive. Sclerae nonicteric. Oropharynx clear. Mucous membranes dry. NECK: Supple. No stridor. LUNGS: Shallow respirations. CARDIOVASCULAR: Showed distant heart tones. ABDOMEN: Soft, no guarding. EXTREMITIES: Shows contraction, trace edema. NEUROLOGIC: Profoundly demented, nonverbal. She is completely bedridden and requires total care. SKIN: Cool. LABORATORY DATA: Admission sodium was 162 mEq, today is down to 155 mEq per liter. Creatinine is down to 1.6 mg percent. Hemoglobin is 10.4 g with dilution, white count 7800. Chest x-ray on admission showed no PE, lingular and right lower lobe infiltrate with bronchiectasis, cholelithiasis and biliary ductal dilatation. She has cholelithiasis. ASSESSMENT: 1. An 85-year-old female with COVID-19 pneumonia. 2. Failure to thrive. 3. Profound dehydration. 4. Hypernatremia due to free water deficit. 5. Generalized debilitation with contractions. 6. Multiple wounds of the left trochanter and outer aspect of the ankle due to bedsores. PLAN: 1. Continue supportive care. 2. Empiric IV antibiotics. 3. Gentle IV hydration with hypotonic D5W. 4. Serial chemistries. 5. She is a DNR per advanced directives. We were trying to contact the durable power of attorney at law to consider hospice care. MAXIME HERNANDEZ MD DR: NAVYA/josefina JOB#: [id number] / [id number]
[2020-10-07 10:32] VITALS: BP 95/62
--- NOTE | 2020-10-07 15:10 | NUR ---
NSG NOTE; AIR BED OBTAINED FOR PT
--- NOTE | 2020-10-07 19:19 | DS ---
DATE OF DISCHARGE: 10/07/2020 ATTENDING PHYSICIAN: Dr. Contreras. FINAL DISCHARGE DIAGNOSES: 1. COVID-19 pneumonia. 2. Failure to thrive. 3. Profound dehydration. 4. Hypernatremia due to free water deficit. 5. Generalized debilitation with contractions. 6. Multiple wounds of the left trochanter, and outer aspect of the ankle due to bedsores. HISTORY AND PHYSICAL: This is a profoundly demented, emaciated [facility] resident, who was admitted with a tentative diagnosis of COVID-19 pneumonia. She is down to about 98 pounds. She is profoundly demented, unable to eat and her serum sodium on admission was 162 mEq per liter. PHYSICAL EXAMINATION: Please see the dictated note. PERTINENT LABORATORY AND X-RAY STUDIES: Admission hemoglobin 13.7 g, white count 13,000. Chemistry panel showed an improvement and her sodium came down to 155 mEq per liter on the third day, creatinine was 1.6 mg percent. Urinalysis was clear. CT angiogram of the chest showed no PE, lingular and right lower lobe infiltrate with consolidation and patchy interstitial infiltrates. COURSE IN THE HOSPITAL: The patient was admitted. She was started on IV hydration, serial chemistry, empiric antibiotics and some home meds. The durable power of strategic accounts manager was notified and she did not want any further heroics. Arrangements were then made on the third hospital day for the patient to be on hospice care. Therefore, she was discharged to be admitted to [facility]. They will review her medications. In the meantime, we will continue her Zosyn D5W at a limited rate and dexamethasone and Protonix. Her prognosis is terminal. She was discharged then from our hospital for inpatient hospice care. Total discharge time spent 42 minutes. MAXIME HERNANDEZ MD DR: NAVYA/josefina JOB#: [id number] / [id number] FRANCISCO Hood MD
[2020-10-07 19:35] VITALS: BP 96/58
[2020-10-07] MEDS: LACTOBACILLUS RHAMNOSUS GG 1 CAPSULE. PO SCH (21:00)
[2020-10-08] MEDS: POTASSIUM CL 20MEQ IN D5W 1,000 ML IV SCH (01:35)
[2020-10-08] MEDS: PIPERACILLIN/TAZOBACTAM 2.25 GM in IV NORMAL SALINE 50ML 50 ML IV SCH (03:50)
[2020-10-08] MEDS: DEXAMETHASONE SOD PHOS 10 MG/ML VIAL. IV SCH (07:57)
[2020-10-08] MEDS: PANTOPRAZOLE IV 40 MG VIAL. IVP SCH (07:57)
[2020-10-08] MEDS: LACTOBACILLUS RHAMNOSUS GG 1 CAPSULE. PO SCH (09:00)
--- NOTE | 2020-10-08 09:35 | PN ---
DATE: ATTENDING PHYSICIAN: Dr. Hernandez She is now on hospice. The patient was discharged from our service and admitted to hospice yesterday per family's request. SUBJECTIVE: Nonresponsive. OBJECTIVE FINDINGS: VITAL SIGNS: Blood pressure today is 96/58, pulse is 80 and regular, but thready. Temperature 97.9 degrees Fahrenheit and oxygen saturation 96% on 2 liters nasal cannula. HEENT: Pupils are reactive. Oropharynx is dry. NECK: Supple. No stridor. LUNGS: Very shallow respirations. CARDIOVASCULAR: Showed distant heart tones. ABDOMEN: Soft, no guarding. EXTREMITIES: Showed muscle wasting, no edema. NEUROLOGIC: Obtunded. ASSESSMENT: 1. Profound debilitation with a contraction. 2. COVID-19 pneumonia. 3. Acute on chronic respiratory failure. 4. Dehydration with hypernatremia and free water deficit. 5. Multiple wounds of bedsores of the left trochanter and ankle. PLAN: 1. The patient is now on hospice. 2. Comfort measures. 3. Prognosis is terminal. MAXIME HERNANDEZ MD DR: NAVYA/josefina JOB#: [id number] / [id number]
[2020-10-08 11:15] VITALS: BP 123/74
[2020-10-08] MEDS ORDERED: SCOPOLAMINE 1.5MG PATCH. TD SCH (11:30)
[2020-10-08] MEDS: MORPHINE SULFATE 4 MG/ML DISP.SYRIN. IV PRN ×4 (11:42→21:43)
[2020-10-08 15:25] VITALS: BP 104/61
--- NOTE | 2020-10-08 15:52 | NUR ---
NSG NOTE; PHONE CONTACT W/ SISTER/DPOA I SPOKE EXTENSIVELY WITH PT'S SISTER/DPOA, DUANE BURCH, ABOUT PT'S CONDITION THIS AM. SHE STATED THAT SHE WANTS COMFORT CARE MEASURES ONLY BUT IS HESITANT TO AGREE TO HOSPICE THIS SEEMS LIKE IT'S THE END. I REASSURED HER THAT HOSPICE IS ANOTHER LAYER OF CARE AND COMFORT BUT SHE WAS STILL HESITANT TO AGREE. SHE WILL CALL US BACK WHEN SHE MAKES A DECISION.
--- NOTE | 2020-10-08 18:54 | NUR ---
NSG NOTE; RECTAL BLEEDING A SMALL AMT OF BLOOD WITH CLOTS MIXED WITH STOOL WAS NOTED ON CHANGING THE PT. AFTER CLEANING HER, NO FURTHER BLEEDING WAS NOTED. WILL INFORM CARRIER ASSOCIATE TO CONTINUE TO MONITOR
[2020-10-08 19:30] VITALS: BP 98/57
[2020-10-09 06:18] VITALS: BP 112/68
[2020-10-09] MEDS: MORPHINE SULFATE 4 MG/ML DISP.SYRIN. IV PRN (08:22)
--- NOTE | 2020-10-09 08:34 | NUR ---
PATIENT IS IN A BED WITH EYES OPEN THIS AM UPON ASSESSMENT. PATIENT MOANING TO VERBAL AND TACTILE STIMULI. PATIENT IS ON COMFORT CARE. MORPHINE PRN GIVEN ORDERED. WILL CTM.
[2020-10-09 12:48] VITALS: BP 107/66
--- NOTE | 2020-10-09 13:46 | DS ---
DATE OF DISCHARGE: 10/09/2020 ATTENDING PHYSICIAN: Dr. Contreras. FINAL DISCHARGE DIAGNOSES: 1. COVID-19 pneumonia. 2. Failure to thrive. 3. Profound dehydration. 4. Hypernatremia due to free water deficit. 5. Generalized debilitation with contractions. 6. Multiple wounds of the trochanter and ankle due to pressure sores. HISTORY AND PHYSICAL: This is a profoundly demented, emaciated custodial resident, admitted with a tentative diagnosis of COVID-19 pneumonia. She is down to about 98 pounds. She was profoundly demented and unable to eat. Serum sodium on admission was 162 mEq per liter. PHYSICAL EXAMINATION: Please see the dictated note. PERTINENT LABORATORY AND X-RAY STUDIES: On the database, admission hemoglobin was 13.7 g/dL with a white count of 13,000. Subsequent chemistries showed sodium down to 155 mEq per liter with hydration. Nonfasting blood sugar 230, creatinine 1.6, BUN 65 mg percent. Urinalysis, specific gravity 1.025. COURSE IN THE HOSPITAL: The patient was admitted and started on IV hydration. Home meds, some were continued. Comfort measures, the sister and durable power of ip technology transactions attorney requested comfort measures. We tried to get her for inpatient hospice. She was unable to sign the papers. On the fourth hospital day, given the terminal nature of her illness, they elected to send her back to [facility] with hospice care. They did not find her to the inpatient hospice at that time. In the meantime, she will be on morphine, Ativan, and scopolamine patch as ordered for comfort measures. The patient was then discharged from our hospital in stable condition for end of life care at [facility]. TOTAL DISCHARGE TIME SPENT: 41 minutes. MAXIME HERNANDEZ MD DR: NAVYA/josefina JOB#: [id number] / [id number] FRANCISCO Hood MD
--- NOTE | 2020-10-09 15:42 | NUR ---
PATIENT IS DISCHARGED TO [facility], REPORT GIVEN TO NURSE MAHER. PATIENT LEFT ROOM 125 VIA EMS.
== END 2020-10-09 15:40 | DRG 177 ==
LOC: ER 09:25 → 1 SOUTH 16:00
PROVIDERS: ADMIT Internal Medicine; ATTEND Internal Medicine
DX: U07.1 COVID-19 (principal); J12.82 Pneumonia due to coronavirus disease 2019; J96.21 Acute and chronic respiratory failure with hypoxia; E87.0 Hyperosmolality and hypernatremia; E87.2 Acidosis; I69.354 Hemiplegia and hemiparesis following cerebral infarction affecting left non-dominant side; N17.9 Acute kidney failure, unspecified; R64 Cachexia; E03.9 Hypothyroidism, unspecified; E11.9 Type 2 diabetes mellitus without complications; E78.00 Pure hypercholesterolemia, unspecified; E78.5 Hyperlipidemia, unspecified; E86.0 Dehydration; E87.6 Hypokalemia; F03.90 Unspecified dementia, unspecified severity, without behavioral disturbance, psychotic disturbance, mood disturbance, and anxiety; I10 Essential (primary) hypertension; K80.20 Calculus of gallbladder without cholecystitis without obstruction; M81.0 Age-related osteoporosis without current pathological fracture; R62.7 Adult failure to thrive; Z51.5 Encounter for palliative care; Z74.01 Bed confinement status; Z82.49 Family history of ischemic heart disease and other diseases of the circulatory system; Z85.09 Personal history of malignant neoplasm of other digestive organs; Z87.891 Personal history of nicotine dependence; L89.529 Pressure ulcer of left ankle, unspecified stage; L89.899 Pressure ulcer of other site, unspecified stage
CPT/HCPCS: 36415; 71275; 80053; 81001; 83605; 83735; 83880; 84484; 85007; 85025; 85379; 87040; 87086; 93005; 96361; 96374; C9113; J1100; J2270; J2543; J7042; J7120; P9612; 99285-25; J7030